=== PATIENT | female | born 1975 | race Caucasian/White ===

== ENCOUNTER 2023-12-27 01:57 | Emergency (ER) | payer OTHER, SELFPAY ==
--- NOTE | 2023-12-27 02:07 | ED.GENADULT ---
HPI - General Adult General Time Seen by Provider: 02:07 Date Seen: 12/27/23 Chief complaint: Nausea/Vomiting Stated complaint: Neck pain, vomiting Time Seen by Provider: 12/27/23 02:07 Source: patient, RN notes reviewed and old records reviewed Mode of arrival: ambulatory Limitations: no limitations History of Present Illness HPI narrative: 48-year-old female who presents today with headache and vomiting. Patient had little bit of a headache last night and vomited once. She felt better during the day it was able eat a little bit, however in the evening her headache had vomiting returned. She did take 1 oxycodone for her headache before the vomiting started again. Denies numbness or tingling the arms legs, the nose photophobia or double vision. Notes history of vertigo with headache and nausea and vomiting but says this feels different she has no vertigo. No fevers or chills, no cough or runny nose, no sore throat. She does have some pain in the back of her neck particularly on the left, has been seen a chiropractor for this. Related Data Home Medications ?Medication ?Instructions ?Recorded ?Confirmed atorvastatin 10 mg tablet 10 mg PO QPM 12/27/23 12/27/23 blood sugar diagnostic (OneTouch 12/27/23 12/27/23 Ultra Test strips) fluticasone propionate 50 2 spray intranasal DAILY 12/27/23 12/27/23 mcg/actuation nasal spray,suspension metformin 500 mg tablet,extended 1,000 mg PO BID 12/27/23 12/27/23 release 24 hr Allergies Allergy/AdvReac Type Severity Reaction Status Date / Time No Known Drug Allergies Allergy Verified 12/27/23 02:24 [facility] Social History Smoking Status: Never smoker Second hand tobacco smoke exposure: No How often do you have a drink containing alcohol: never AUDIT-C Alcohol total score: 0 Non-prescribed substance use: denies use Exam Narrative: Exam Narrative: General: Well-developed and well-nourished, no acute distress Head: Atraumatic and normocephalic Eyes: Pupils are equal reactive, extraocular motions intact, conjunctiva clear ENT: External nose and ears are normal, posterior pharynx without erythema or exudate Neck: No midline cervical tenderness, full spontaneous range of motion the neck, trachea midline, no adenopathy Heart: Regular rate and rhythm no murmurs or thrills Lungs: Clear to auscultation bilaterally without wheezes or crackles Abdomen: Soft, nontender, nondistended with active bowel sounds Musculoskeletal: No tenderness, deformity, or edema Neurologic: Awake, alert, and oriented x3, no gross focal neurologic deficits, cranial nerves intact as tested Psych: Mood and affect are appropriate Skin: No rashes Const: Vital Signs, click to edit/add: Vital Signs - 24 hr 12/27/23 02:22 12/27/23 02:39 Temperature 98.1 F 98.1 F Pulse Rate [Right Pulse Oximeter] 74 Respiratory Rate 18 Blood Pressure [Ri ght Upper Arm] 182/89 H Pulse Oximetry 99 Oxygen Delivery Me thod Room Air Course Course ED Course: Patient seen examined, prior records reviewed. Patient presents with left-sided neck pain and headache, along with vomiting although this seems to have been exacerbated by taking oxycodone. On exam here patient is awake alert, no focal neurologic deficits, no nuchal rigidity. And suspicion for meningitis is low, suspicion for acute intracranial pathology is low as well. Medications are ordered to help with patient's headache and anticipate discharge Reevaluation(s) Time of Reevaluation #1: 03:11 Reevaluation #1: Patient recheck, she is feeling better and stable for discharge. We discussed follow-up plan and she is agreeable. Vital Signs Vital signs: Initial Vital Signs Temperature 98.1 F 12/27/23 02:22 Temperature Source Temporal Artery Scan 12/27/23 02:22 Pulse Rate 74 12/27/23 02:22 Respiratory Rate 18 12/27/23 02:22 Blood Pressure 182/89 H 12/27/23 02:22 Blood Pressure Mean 120 H 12/27/23 02:22 Blood Pressure Position Supine 12/27/23 02:22 Pulse Oximetry 99 12/27/23 02:22 Oxygen Delivery Method Room Air 12/27/23 02:22 Vital Signs Temperature 98.1 F 12/27/23 02:22 Pulse Rate 74 12/27/23 02:22 Respiratory Rate 18 12/27/23 02:22 Blood Pressure 182/89 H 12/27/23 02:22 Pulse Oximetry 99 12/27/23 02:22 Oxygen Delivery Method Room Air 12/27/23 02:22 Temperature 98.1 F 12/27/23 02:39 Pulse Rate 74 12/27/23 02:22 Respiratory Rate 18 12/27/23 02:22 Blood Pressure 182/89 H 12/27/23 02:22 Pulse Oximetry 99 12/27/23 02:22 Oxygen Delivery Method Room Air 12/27/23 02:22 Medications Administered Medications: Generic Name Dose Route Start Last Admin Trade Name Saeid PRN Reason Stop Dose Admin Dexamethasone 10 mg 12/27/23 02:37 12/27/23 02:41 Dexamethasone 10 Mg/Ml Inj IVP 12/27/23 02:38 10 mg ONCE ONE Administration Diphenhydramine HCl 25 mg 12/27/23 02:37 12/27/23 02:35 Diphenhydramine 50 Mg/Ml Inj IVP 12/27/23 02:38 25 mg ONCE ONE Administration Sodium Chloride 1,000 mls @ 1,000 mls/hr 12/27/23 02:45 12/27/23 02:35 0.9 % Sodium Chloride 1000 Ml IV 12/27/23 03:44 1,000 mls/hr .Q1H ARISTEO Administration Ketorolac Tromethamine 15 mg 12/27/23 02:37 12/27/23 02:39 Ketorolac 15 Mg/Ml Inj IVP 12/27/23 02:38 15 mg ONCE ONE Administration Prochlorperazine 5 mg 12/27/23 02:37 12/27/23 02:37 Prochlorperazine 5 Mg/Ml Vial IVP 12/27/23 02:38 5 mg ONCE ONE Administration Discharge Plan Discharge Clinical Impression: Acute tension-type headache, Vomiting Patient Disposition: Home, Self-Care Condition: Stable Instructions: Acute Headache (DC), Acute Neck Pain (ED) Additional Instructions: Follow-up with your primary care provider in 1 week if needed Activity Level: No Restrictions Discharge Diet: Regular Prescriptions: No Action atorvastatin 10 mg tablet 10 mg PO QPM (DME) OneTouch Ultra Test Strip MISCELLANEOUS BID fluticasone propionate 50 mcg/actuation spray,suspension 2 spray INTRANASAL DAILY metformin 500 mg tablet extended release 24 hr 1,000 mg PO BID Follow Up/Referrals: Leonidas Barboza MD [Staff Physician] - Stand Alone [facility] Instructions
[2023-12-27 02:22] VITALS: BP 182/89; PULSE 74; RESP 18; TEMP 36.7; O2SAT 99; BMI 28.1
[2023-12-27] MEDS: diphenhydrAMINE 50 MG/ML inj 25 MG IVP (02:35)
[2023-12-27] MEDS: 0.9 % SODIUM CHLORIDE 1000 ml 1,000 ML IV (02:35)
[2023-12-27] MEDS: PROCHLORPERAZINE 5 MG/ML VIAL IVP (02:37)
[2023-12-27 02:39] VITALS: TEMP 36.7
[2023-12-27] MEDS: KETOROLAC 15 MG/ML inj IVP (02:39)
[2023-12-27] MEDS: dexAMETHasone 10 MG/ML inj IVP (02:41)
[2023-12-27 03:23] VITALS: O2SAT 95
[2023-12-27 03:25] VITALS: TEMP 36.7
== END 2023-12-27 03:24 | disposition home or self-care (01) ==
PROVIDERS: Emergency Provider Family Medicine
DX: R51.9 Headache, unspecified (principal); R11.10 Vomiting, unspecified
CPT/HCPCS: 94761; 96374; 96375; 99283; 99284; J0780; J1100; J1200; J1885; J7030